=== PATIENT | female | born 1990 ===

== ENCOUNTER 2020-03-07 10:26 | Emergency (ER) | payer OTHER ==
[~2020-03-07] VITALS: Ht 152.4 cm; Wt 49.9 kg
[2020-03-07] MEDS ORDERED: SYNTHROID88 MCG PO (10:50)
[2020-03-07] MEDS ORDERED: SYNTHROID100 MCG PO (10:51)
== END 2020-03-07 13:19 | disposition home or self-care (01) ==
LOC: ER 10:26
DX: M79.641 Pain in right hand (principal)